=== PATIENT | male | born 1970 | race Caucasian/White ===

== ENCOUNTER 2018-09-04 08:58 | Emergency (ER) | payer OTHER ==
--- NOTE | 2018-09-04 09:04 | EDPHY ---
H & P Time Seen by Provider: 09/04/18 09:03 HPI/ROS: CHIEF COMPLAINT: Severe right flank pain HISTORY OF PRESENT ILLNESS: 48-year-old man woke up today at 5:00 a.m. With severe 7 to 8/10 right-sided flank pain. It did not radiate and was not associated with urinary symptoms, he felt restless and could not get comfortable no matter what position he was in. It did not change with position. No recent injury or trauma. He had a little bit of nausea and upset stomach but attributed that to spicy chicken wings from last night. No or testicular symptoms. He went to urgent care and microscopic hematuria was noted he was referred to the ED. While he was there the pain started to decrease and now it is only about 1/10. REVIEW OF SYSTEMS: Eye: no change in vision ENT: no sore throat Cardiac: no chest pain or syncope Pulmonary: no cough or SOB Abdomen: HPI Musculoskeletal: HPI Skin: no rash Neuro: no headache Constitutional: no fever : no urinary symptoms A comprehensive 10 point review of systems is otherwise negative aside from elements mentioned in the history of present illness. PAST MEDICAL HISTORY: Blind right eye, high cholesterol Family history: Positive for kidney stones in his father Social history: Nonsmoker General Appearance: Alert and conversant, cooperative. Eyes: No scleral icterus. ENT, Mouth: Normal mucous membranes. Respiratory: Normal respiratory effort, breath sounds equal, lungs are clear to auscultation. Cardiovascular: Regular rate and rhythm. Gastrointestinal: Abdomen is soft and non tender. No pulsatile mass. Neurological: Alert cooperative and ambulatory. Skin: Warm and dry, no rashes. Musculoskeletal: No peripheral edema. Psychiatric: Not agitated. Emergency Department course/MDM: High suspicion for renal colic. CT abdomen pelvis without contrast discussed and consented. Discussed with the patient and family that I do not think blood tests would add much information given the current clinical picture, they are comfortable with proceeding as described. 941: Pain returns, IV Dilaudid. Results discussed and CT reviewed, more comfortable after IV Dilaudid. Plan for discharge with symptomatic treatment if we get his pain controlled. Patient says he is comfortable with that plan. Differential diagnosis considered for flank pain including but not limited to musculoskeletal causes, kidney stone, pyelonephritis, shingles, and intra- abdominal causes such as diverticulitis and appendicitis. Smoking Status: Never smoked Constitutional: Initial Vital Signs Temperature (C) 36.6 C 09/04/18 09:01 Heart Rate 56 L 09/04/18 09:01 Respiratory Rate 18 09/04/18 09:01 Blood Pressure 109/56 L 09/04/18 09:01 O2 Sat (%) 96 09/04/18 09:01 O2 Delivery Mode Room Air Allergies/Adverse Reactions: No Known Allergies Allergy (Verified 09/04/18 09:00) Home Medications: Medication Instructions Recorded Hydrocodone/APAP 5/325 [Tuttle 1 tab PO Q4-6PRN PRN #11 tab 09/04/18 5/325] SIMVASTATIN 09/04/18 Medical Decision Making - Diagnostics Imaging Results: Imaging Impressions Abdomen/Pelvis CT 09/04/18 09:14 Impression: Obstructing 3 mm right UVJ stone. There is mild hydroureteronephrosis. Findings and recommendations discussed with NHAN SCHNEIDER at 944 hour, 09/04/2018. Imaging: Discussed imaging studies w/ call center agent Radiologist - Data Points Laboratory Results: 09/04/18 09:17 Urine Color YELLOW Urine Appearance CLEAR Urine pH 5.0 (5.0-7.5) Ur Specific [place] 1.025 (1.002-1.030) Urine Protein NEGATIVE (NEGATIVE) Urine Ketones NEGATIVE (NEGATIVE) Urine Blood 3+ H (NEGATIVE) Urine Nitrate NEGATIVE (NEGATIVE) Urine Bilirubin NEGATIVE (NEGATIVE) Urine Urobilinogen NEGATIVE EU EU (0.2-1.0) Ur Leukocyte Esterase NEGATIVE (NEGATIVE) Urine RBC 50-182 /hpf H /hpf (0-3) Urine WBC 1-3 /hpf /hpf (0-3) Ur Epithelial Cells NONE SEEN /lpf /lpf (NONE-1+) Urine Mucus TRACE /lpf /lpf (NONE-1+) Urine Glucose NEGATIVE (NEGATIVE) Medications Given: Discontinued Medications Hydromorphone HCl (Dilaudid) 1 mg IVP EDNOW ONE Stop: 09/04/18 09:38 Last Admin: 09/04/18 09:44 Dose: 1 mg Sodium Chloride (Ns) 1,000 mls @ 3,000 mls/hr IV ONCE ONE Stop: 09/04/18 09:56 Last Admin: 09/04/18 09:44 Dose: 1,000 mls Ketorolac Tromethamine (Toradol) 15 mg IVP EDNOW ONE Stop: 09/04/18 09:55 Last Admin: 09/04/18 09:55 Dose: 15 mg Ondansetron HCl (Zofran) 4 mg IVP EDNOW ONE Stop: 09/04/18 09:38 Last Admin: 09/04/18 09:44 Dose: 4 mg Departure - Departure Disposition: Home, Routine, Self-Care Clinical Impression: Renal colic on right side Condition: Good Instructions: Hydrocodone/Acetaminophen (By mouth), Renal Colic (ED) Referrals: Dereck Milligan MD [Primary Care Provider] - As per Instructions Teresa Segal MD [Medical Doctor] - 2-3 days, if not improved ([facility] urology follow-up) Prescriptions: Hydrocodone/APAP 5/325 [Tuttle 5/325] 1 tab PO Q4-6PRN PRN #11 tab PRN Reason: For Pain
[2018-09-04] MEDS ORDERED: ONDANSETRON 4 MG/2 ML VIAL ONE (09:36)
[2018-09-04] MEDS ORDERED: HYDROmorphONE/DILAUDID 1 MG/ML INJ ONE (09:36)
[2018-09-04] MEDS ORDERED: NS 1,000 ML IV ONE (09:37)
[2018-09-04] MEDS ORDERED: ONDANSETRON 4 MG/2 ML VIAL IVP ONE (09:37)
[2018-09-04] MEDS ORDERED: HYDROmorphONE/DILAUDID 1 MG/ML INJ IVP ONE (09:37)
[2018-09-04] MEDS ORDERED: KETOROLAC 15 MG/1 ML SDV ONE (09:51)
[2018-09-04] MEDS ORDERED: KETOROLAC 15 MG/1 ML SDV IVP ONE (09:54)
[2018-09-04 11:04] VITALS: BP 99/57
== END 2018-09-04 11:03 | disposition home or self-care (01) ==
DX: N23 Unspecified renal colic (principal)
CPT/HCPCS: 96374; J1170; J1885; J2405